=== PATIENT | female | born 1995 | race Caucasian/White ===

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

== ENCOUNTER 2017-05-04 15:21 | Emergency (ER) | payer BC ==
[2017-05-04 16:57] VITALS: BP 121/68
--- NOTE | 2017-05-04 17:26 | UC ---
Abdominal Pain Female HPI - HPI Summary HPI Summary: Started getting RLQ pain 2 days ago, has localized to R mid abd pain beside umbilicus. Poor appetite but is able to eat; no fever or n/v/d. Typically has some constipation, but having normal BMs most days including this morning. Denies surgical hx of the abdomen. 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 Pain worse with movement, jostling, deep breaths, no change with eating. - History of Current Complaint Chief Complaint: UCAbdominalPain Stated Complaint: ABDOMINAL PAIN Time Seen by Provider: 05/04/17 17:02 Hx Obtained From: Patient Hx Last Menstrual Period: 04/14/17 ?: No Onset/Duration: Gradual Onset, Lasting Days Timing: Constant Severity Initially: Mild Severity Currently: Moderate Location: Discrete At: RLQ Radiates: Yes Radiates to: Back Aggravating Factor(s): Nothing Alleviating Factor(s): Nothing Associated Signs and Symptoms: Positive: Constipation, Decreased Appetite. Negative: Fever, Cough, Blood in Stool, Vaginal Discharge, Nausea, Vomiting Allergies/Adverse Reactions: Allergies Allergy/AdvReac Type Severity Reaction Status Date / Time No Known Allergies Allergy Verified 05/04/17 16:57 Home Medications: Home Medications Ascorbic Acid TAB* [Vitamin C TAB*] 1,000 mg PO DAILY 05/04/17 [History Confirmed 05/04/17] Docusate Sodium [Stool Softener] 100 mg PO DAILY 05/04/17 [History Confirmed ] PMH/Surg Hx/FS Hx/Imm Hx Previously Healthy: Yes - Surgical History Surgical History: Yes Surgery Procedure, Year, and Place: 12/2015 RT ANKLE TORN LIGAMENT , [place]W [place] [facility] [place] 06[place] EAR TUBE [facility] - Family History Known Family History: Positive: None Family History: No cardiovascular issues in family lineage - Social History Lives: With Family Alcohol Use: None Substance Use Type: None Smoking Status (MU): Never Smoked Tobacco Have You Smoked in the Last Year: No - Immunization History Most Recent Influenza Vaccination: has not had Vaccination Up to Date: Yes Review of Systems Constitutional: Negative Skin: Negative Eyes: Negative ENT: Negative Respiratory: Negative Cardiovascular: Negative Gastrointestinal: Abdominal Pain Genitourinary: Negative Motor: Negative Neurovascular: Negative Musculoskeletal: Negative Neurological: Negative Psychological: Negative Is Patient Immunocompromised?: No All Other Systems Reviewed And Are Negative: Yes Physical Exam Triage Information Reviewed: Yes Appearance: Well-Nourished, Pain Distress - mild, wincing with movement Vital Signs: Initial Vital Signs Temp 98.8 F 05/04/17 16:46 Pulse 79 05/04/17 16:46 Resp 18 05/04/17 16:46 BP 121/68 05/04/17 16:46 Vital Signs Reviewed: Yes Eye Exam: Normal Eyes: Positive: Conjunctiva Clear ENT Exam: Normal ENT: Positive: Normal ENT inspection, Hearing grossly normal, Pharynx normal, TMs normal - PE tube in L TM Neck exam: Normal Neck: Positive: Supple, Nontender, No Lymphadenopathy Respiratory Exam: Normal Respiratory: Positive: Chest non-tender, Lungs clear, Normal breath sounds, No respiratory distress, No accessory muscle use Cardiovascular Exam: Normal Cardiovascular: Positive: RRR, No Murmur Abdomen Description: Positive: No Organomegaly, Soft, McBurney's Point Tenderness - mild, Peritoneal Signs, Other: - Focal tenderness R lateral abd, even with umbilicus Bowel Sounds: Positive: Present Musculoskeletal Exam: Normal Neurological Exam: Normal Neurological: Positive: Alert Psychological Exam: Normal Skin Exam: Normal Abd Pain Female Course/Dx - Course Course Of Treatment: Pt will be transported to [facility] by parent in private vehicle. VSS at this time. - Differential Dx/Diagnosis Provider Diagnoses: Acute abdominal pain - Physician Notification/Consults Discussed Care of Patient With: Hiram Pope MD Time Discussed With Above Provider: 17:20 Instructed by Provider To: Will See In ED Discharge - Discharge Plan Condition: Stable Disposition: HOME Patient Education Materials: Acute Abdominal Pain (ED) Referrals: Eve Novak PA [Primary Care Provider] - Additional Instructions: I am not certain what is causing your pain right now. I think you need further testing; please go to the emergency department for further evaluation.
== END 2017-05-04 17:37 | disposition home or self-care (01) ==
LOC: UCCORT 15:21
DX: R10.31 Right lower quadrant pain (principal); R10.33 Periumbilical pain; K59.00 Constipation, unspecified; Z32.02 Encounter for pregnancy test, result negative
CPT/HCPCS: 81003; 84702; 87086; 99212; G0463

== ENCOUNTER 2018-06-19 13:57 | Emergency (ER) | payer BC ==
--- OUTSIDE RECORDS SUMMARY | 2018-06-19 14:07 | XMS REPORT | Continuity of Care Document ---
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 Payers Date Identification Numbers Payment Provider Subscriber Policy Number: [id number] [facility] Sheridan Cohen PayID: [id number] [address] [place] [address] Advance Directives Description No Information Available Problems Description No Information Family History Date Family Member(s) Observation Comments Father Arrythmia Mother No Current Problems Paternal Grandfather Cancer, Renal Social History Type Date Description Comments Sex Unknown Marital Status Single Occupation Student ETOH Use Never used alcohol Tobacco Use Start: Unknown Patient has never smoked Recreational Drug Use Never Used Drugs Smoking Status Reviewed: 06/17/18 Patient has never smoked Seat Belt/Car Seat always uses seat belt Recent Travel There has not been recent travel abroad Allergies, Adverse Reactions, Alerts Description No Known Drug Allergies Medications Medication Date Status Form Strength Qnty SIG Indications Ordering Provider Zyrtec Allergy 06/17/ Active Capsules 10mg 30caps 1 by mouth Pan, 2018 every day Ashley Bhandari RN [place] [facility] Famotidine 06/17/ Active Tablets 20mg 180tab take one K21.9 Pan, 2018 s tablet by Rossy Marin RN [place] [facility] day Singulair OTC / Active Tablets 10mg 1 by mouth Unknown 0000 every day Prazosin HCL / Active Capsules 1mg Unknown 0000 Albuterol / Active Aerosol 108(90Base use three J45.998 Unknown Sulfate HFA 0000 ) mcg/Act times a day as needed Dasetta 1/35 00/ Active Tablets 1-35mg-mcg Unknown 0000 Azithromycin 03/17/ Hx Tablets 250mg 6tabs 2 tabs by J15.9 Linh, 2017 - mouth every Mary 03/20/ day MD Jacoby 2017 Control 06/05/ Hx Linh, Pill 2017 - Mary 06/17/ MD Jacoby 2018 Cephalexin 06/05/ Hx Capsules 500mg 15caps 1 tab by Linh 2016 - mouth 3x Mary 06/17/ daily x 5 MD Jacoby 2018 days Alison 00/ Hx Tablets 60mg Unknown Allergy OTC 0000 - 2018 Immunizations Description No Information Available Vital Signs Date Vital Result Comment 06/17/2018 4:43pm Body Temperature 95.6 F Heart Rate 65 /min BP Systolic 148 mmHg BP Diastolic 89 mmHg BP Systolic Recheck 128 mmHg BP Diastolic Recheck 80 mmHg Height 68 inches 5'8" O2 % BldC Oximetry 100 % 03/17/2018 12:32pm Body Temperature 97.3 F Weight 164.00 lb Heart Rate 81 /min BP Systolic 122 mmHg BP Diastolic 78 mmHg Height 68 inches 5'8" BMI (Body Mass Index) 24.9 kg/m2 06/05/2016 11:12am Body Temperature 98.2 F Weight 156.00 lb Weight Percentile 86th Heart Rate 83 /min BP Systolic 119 mmHg BP Diastolic 72 mmHg Height 68 inches 5'8" Height Percentile 93 % BMI (Body Mass Index) 23.7 kg/m2 Body Mass Index Percentile 72 % Results Test Date Facility Test Result H/L Range Note Laboratory test 03/17/2018 Done In [facility] 1 Rapid Flu NEG finding Test (In House) 1 Strep Screen (In-House) NEG Negative Wound Culture-RL 06/05/2016 [facility] SEE NOTE 1 1 SPECIMEN DESCRIPTION SURGICAL WOUND SPECIAL REQUESTS NONE GRAM STAIN NO WHITE BLOOD CELLS NO BACTERIA CULTURE RESULTS NO GROWTH REPORT STATUS FINAL 06/07/2016 Unless otherwise specified, testing performed by [facility] [address] [place] [address] Procedures Date Code Description Status 06/17/2018 90145 Airway Inhalation Treatment Completed 06/17/2018 63557 Electrocardiogram Complete Completed Encounters Type Date Location Provider Dx Diagnosis Office Visit 06/17/2018 Ashley Espinoza, 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, 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 K21.9 Gastro-esophageal reflux disease without esophagitis J45.998 Other asthma Office Visit 03/17/2018 12:50p Ez Adams PA J15.9 Unspecified bacterial pneumonia J02.9 Acute pharyngitis, unspecified J45.20 Mild intermittent asthma, uncomplicated R05 Cough R53.83 Other fatigue R05 Cough Office Visit 06/05/2016 11:00a Kamala Wall PA L03.115 Cellulitis of RIGHT lower limb Plan of Treatment 06/17/2018 - Ashley Perla, RN MS FNP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, unspecifiedNew Xrays: Chest X-Ray PA And Lateral, Ordered: 06/17/18Comments:EKG, NSR, NO ST T WAVE CHANGES, BREATHING TREATMENT W DUONEB.Probably Chest Wall Pain:Pt instructed to use an anti-inflammatory such as Ibuprofen, aleve, advil or motrin on a regular basis with food for at least 1 week. May try heat to chest wall also, a corn bag or warm moist heat is best. Sometimes ice can be used for pain in the ribs also.Miscellaneous:GET YOUR CHEST XRAY AND THEN CALL FOR ANOTHER APPOINTMENT TOMORROW TO REVIEW, TO ER FOR ANY TROUBLE BREATHING OR SHORTNESS OF QCNJBPOM46.9 Gastro-esophageal reflux disease without esophagitisNew Medication: Famotidine 20 mg - take one tablet by mouthONCE a dayJ45.998 Other asthma
--- OUTSIDE RECORDS SUMMARY | 2018-06-19 14:07 | XMS REPORT | Continuity of Care Document ---
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 Payers Date Identification Numbers Payment Provider Subscriber Policy Number: [id number] [facility] Sheridan Cohen PayID: [id number] [address] [place] [address] Advance Directives Description No Information Available Problems [...] 2018 every day Ashley Bhandari RN MS [facility] Famotidine 06/17/ Active Tablets 20mg 180tab take one K21.9 Pan, 2018 s tablet by Rossy Marin RN MS [facility] day Singulair OTC / Active Tablets 10mg 1 by mouth Unknown 0000 every day Prazosin HCL / Active Capsules 1mg Unknown 0000 Albuterol / Active Aerosol 108(90Base use three J45.998 Unknown Sulfate HFA 0000 ) mcg/Act times a day as needed Dasetta 35 / Active Tablets 1-35mg-mcg Unknown 0000 Azithromycin 03/17/ Hx Tablets 250mg 6tabs 2 tabs by J15.9 Linh, 2017 - mouth every Mary 03/20/ day MD Jacoby 2018 Control 06/05/ Hx Linh Js 2017 - Mary 06/17/ MD Jacoby 2018 Cephalexin 06/05/ Hx Capsules 500mg 15caps 1 tab by Linh 2017 - mouth 3x Mary 06/17/ daily x 5 MMD 2018 days Alison / Hx Tablets 60mg Unknown Allergy OTC 0000 [...] Unless otherwise specified, testing performed by [facility] [place] [facility] [address] [place] [address] Procedures Date Code Description Status 06/17/2018 78862 Airway Inhalation Treatment Completed 06/17/2018 98192 Electrocardiogram Complete Completed Encounters Type Date Location Provider Dx Diagnosis Office Visit 06/17/2018 Ashley Espinoza, 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, 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 K21.9 Gastro-esophageal reflux disease without esophagitis J45.998 Other asthma Office Visit 03/17/2018 12:50p Ez Adams PA J15.9 Unspecified bacterial pneumonia J02.9 Acute pharyngitis, unspecified J45.20 Mild intermittent asthma, uncomplicated R05 Cough R53.83 Other fatigue R05 Cough Office Visit 06/05/2016 11:00a Kamala Wall PA L03.115 Cellulitis of RIGHT lower limb Plan of Treatment 06/17/2018 - Ashley Perla, RN MS FNP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, unspecifiedComments: EKG, NSR, NO ST T WAVE CHANGES, BREATHING [...] FOR ANY TROUBLE BREATHING OR SHORTNESS OF GWPJYXPU00.9 Gastro-esophageal reflux disease without esophagitisNew Medication:Famotidine 20 mg - take one tablet by mouthONCE a dayJ45.998 Other asthma
--- OUTSIDE RECORDS SUMMARY | 2018-06-19 14:08 | XMS REPORT | Continuity of Care Document ---
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 Eve Novak RPAC Primary Care Physician Unavailable Payers Type Date Identification Numbers Payment Provider Subscriber Policy Number: [id number] Audie Cohen PayID: [id number] [facility] [address] [place] [address] Advance Directives Description No Information Available Problems Date Description Provider Status Onset: 03/02/2014 Temporomandibular Eve Novak RPAC Active ilzxn-qwwu-edhrdorjrls syndrome Onset: 12/25/2012 Atopic dermatitis Eve Novak RPAC Active Onset: 05/15/2012 Migraine Eve Novak RPAC Active Onset: 04/05/2015 Cough variant asthma Eve Novak RPAC Active Onset: 07/25/2015 Sensorineural hearing loss Eve Novak RPAC Active Note: L>R Onset: 08/11/2017 Raynaud's phenomenon Eve Novak RPAC Active Note: toes (Prazosin) Onset: 02/10/2018 Food allergy Eve Novak RPAC Active Note: RAST > peanut,wheat,corn,soy,coconut Onset: 02/10/2018 Gastroparesis syndrome [facility] Active Note: 02/2018 Onset: 06/02/2018 Dysmenorrhea Eve Novak RPAC Active Note: OCP 2014 Onset: 09/04/2012 Contusion of knee Vasiliy Up MD Resolved Resolved: 04/07/2015 Family History Date Family Member(s) Problem(s) Comments Mother Hearing deficit since childhood Grandfather Kidney Cancer Social History Type Date Description Comments Sex Unknown Lives With Parents Diet Patient follows no dietary restrictions Occupation Student [employer] 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 Tobacco Use Start: Unknown Never Smoked Cigarettes ETOH Use Never used alcohol Tobacco Use Start: Unknown Patient denies history of smoking Smoking Status Reviewed: 06/02/18 Patient denies history of smoking Allergies, Adverse Reactions, Alerts Date Description Reaction Status Severity Comments 01/26/2018 Coconut Nausea and Vomiting Active 02/11/2018 Wheat GI Active 02/11/2018 [place] gi Active 02/11/2018 Soybean Preparation and corn, GI Active 04/20/2018 Peanuts Active vomiting 09/04/2012 NKDA Inactive Medications Medication Date Status Form Strength Qnty SIG Indications Ordering Provider Ondansetron 04/20 Active Tablets 8mg 30tab take 1 tablet R11.10 Loya, HCL s by mouth Shay, every 8 hours M.D. as needed for nausea Amitiza 02/02 Active Capsules 24mcg 60cap take one K58.1 Loya, s capsule by Shay, mouth twice a M.D. day as needed for constipation, on hold 04/2018 Famotidine 02/02 Active Tablets 40mg 60tab take one Loya, s tablet by Shay, mouth every M.D. day to twice a day for indigestion Dicyclomine 05/15 Active Capsules 10mg 120ca take one - R10.811 Loya, HCL /2017 ps two capsules Shay, by mouth M.D. every 6 hours as needed for abdominal pain / spasm Prazosin HCL 05/15 Active Capsules 1mg 30cap 1 capsule by I73.00 Loya, s mouth every Shay, night at M.D. bedtime Dasetta 08/20 Active Tablets 1-35mg-mc 28tab 1 tab by N94.6 Loya, g s mouth every Shay, day M.D. Singulair 04/11 Active Tablets 10mg 30tab take 1 tablet Vincenzo, s once daily Marcial Day Ventolin HFA 08/23 Active Aerosol 108(90Bas 18gm 1-2 Loya, e) inhalations Shay, mcg/Act every 4 hours M.D. as needed Vitamin C Active Tablets 500mg 1 tab by Unknown /0000 mouth one a day Magnesium Active Tablets 400mg 1 by mouth Unknown /0000 every day Colace Active Capsules 100mg 2-3 caps by Unknown /0000 mouth daily Ondansetron 04/20 Hx Tablets 4mg 14tab take 1 tablet R11.10 Loya, HCL s by mouth Shay, - every 8 hours M.D. 04/20 as needed for nausea Ondansetron 01/26 Hx Tablets 4mg 14tab take 1 tablet R11.10 Loya, HCL s by mouth Shay, - every 8 hours M.D. 04/20 as needed for nausea Linzess 05/15 Hx Capsules 72mcg 30cap 1 by mouth K58.1 Loya, s every other Shay, - day for M.D. 02/02 constipation Dicyclomine 05/08 Hx Capsules 10mg 60cap take one R10.811 Loya, HCL s capsule by Shay, - mouth every 6 M.D. 05/15 hours needed for abdominal pain / spasm Amoxicillin 11/11 Hx Tablets 875mg 14tab 1 tab by I88.9 Vincenzo, s mouth twice a Shay, - day M.D. 02/17 Naproxen 09/26 Hx Tablets 375mg 60tab 1 by mouth Galina, s twice a day Juve, - with food M.D. 02/11 Ceftin 09/18 Hx Tablets 500mg 20tab 1 tab by R59.0 Ez, /2015 s mouth twice a Harley Arambula, - day (generic DO 02/11 okay) Fexofenadine 09/17 Hx Tablets 180mg 30tab take one YI Hui s tablet by Harley Arambula, - mouth every DO 01/26 day as needed /2017 for nasal congestion/al lergies Benzonatate 07/18 Hx Capsules 200mg 30cap 1 cap by R05 Ez s mouth three Harley ECezar, times a day DO as needed cough Azithromycin 07/18 Hx Tablets 250mg 10tab 2 tabs by J02.9 s mouth every Harley Arambula, - day DO 08/09 Ortho-Novum 06/05 Hx Tablets 1-35mg-mc 28tab 1 tab by N94.6 Ez, ( g s mouth every Harley Arambula, - day DO 08/20 Carbamazepine 04/21 Hx Chewtabs 100mg 14uni 1 by mouth Miguel A ts every day Marcial Goss Azithromycin 04/05 Hx Tablets 250mg 6tabs 2 tabs by R05 Ez mouth today Harley Arambula, - then one tab DO 04/10 by mouth daily Pimtrea 03/15 Hx Tablets 0.15-0.02 N94.6 Ez /0.01 mg Harley Arambula, - (22/09) DO 03/15 Tramadol HCL 03/07 Hx Tablets 50mg take 1 to 2 tablets by mouth every 6 hours if needed for ear pain Diclofenac 01/[address] 50mg 60tab 1 tab bid Rowan Mojica s with gina An M.D. Fexofenadine 01/04 Hx Tablets 180mg 30tab take one YI Hui s tablet by Harley Arambula, mouth every DO day for congestion Astelin 01/04 Hx Solution 137mcg/Sp 30ml use 2 sprays 381.81 Ez ray twice a day Harley Arambula, into each DO nostril Mircette 01/04 Hx Tablets 0.15-0.02 28tab 1 tab by N94.6 Ez /0.01 mg s mouth every Harley Arambula, - (22/09) day DO 06/05 Augmentin 12/20 Hx Tablets 875-125mg 20tab one tab by Ez s mouth every Harley Arambula, - 12 hours with DO 01/04 food /2014 Prednisone 12/20 Hx Tablets 20mg 10tab 2 tabs by Ez s mouth every Harley Arambula, - day with food DO 01/04 Azithromycin 12/14 Hx Tablets 250mg 6tabs take 2 tabs 461.9 Ez by mouth day Harley Arambula, - 1 and 1 tab DO 12/20 by mouth /2014 2-5 Ceftin 11/08 Hx Tablets 500mg 20tab 1 tab by 384.20 Ez s mouth twice a Harley Arambula, - day (generic DO 11/21 okay) Ciprodex 11/08 Hx Suspension 0.3-0.1% 7.500 4 drops to 384.20 Ez ml (L) ear bid Harley Arambula, - DO 11/25 12 Hour 03/22 Hx Tablets ER 120mg 20tab 1 by mouth Joan Decongestant 12HR s twice a day Christine - as needed MD 11/07 Dulera 12/07 Hx Aerosol 100-5mcg/ 2 inhalations Joan, Act twice a day hCristine Roy MD 11/07 Ventolin HFA 07/28 Hx Aerosol 108mcg/Ac 1unit 1-2 puffs [place] t s every 4-6 Jenniferl - hours as eigh, [employer]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 Rizatriptan 05/15 Hx Tablets 10mg 12tab one po at [facility] Dispers s onset of Christine - headache, MD rebecca 11/07 repeat in hours x 1 prn Alison 00 Hx Tablets 30tab 1 po qd Unknown /0000 s - 11/07 Ethyl Chloride 00 Hx Aerosol apply via Unknown /0000 topical route - as directed 11/[address] Napier Monteal[place] 00 Hx Tablets 10mg 30tab 1 by mouth Ez s every day Harley Arambula, - DO 04/11 Amoxicillin 00/00 Hx Chewtabs 250mg 1 by mouth Unknown /0000 three times a - day 11/08 Naproxen 00 Hx Tablets 250mg Unknown /0000 - 01/16 Aleve 00/ Hx Unknown /0000 - 09/26 Immunizations CPT Code Status Date Vaccine Reaction Lot # [id number] Given 02/17/2017 Influenza Virus Vaccine Quadrivalent Iiv4 none [id number] [address] Given 10/20/2015 Meningococcal Conjugate Vaccine [id number] Serogroups For Intramuscular Use 63073 Given 12/07/2013 Varicella (Chicken Pox) Vaccine 41265 Given 12/12/2010 Meningococcal Conjugate Vaccine Serogroups For Intramuscular Use 74318 Given 01/23/2009 Tdap injection 67786 Given 08/02/2008 Gardasil 54637 Given 02/26/2008 Gardasil 93866 Given 12/23/2007 Gardasil 65732 Given 11/25/2006 Varicella (Chicken Pox) Vaccine 64700 Given 08/05/2002 Pneumococcal Conjugate Vaccine 7 Valent For Intramuscular Use 41894 Given 08/05/2002 DTaP Vaccine Younger Than 7 09019 Given 08/05/2002 Poliovirus Vaccine Subcutaneous Or Intramuscular 26566 Given 07/18/2000 MMR Vaccine, Live, For Subcutaneous Use 11233 Given 10/23/1998 MMR Vaccine, Live, For Subcutaneous Use 36966 Given 03/08/1998 Hepatitis B Vaccine Pediatric/Adolescent 20238 Given 01/02/1998 DTaP & Hib Vaccine 69253 Given 01/02/1998 Poliovirus Vaccine Subcutaneous Or Intramuscular 99496 Given 1997 DTaP & Hib Vaccine 68183 Given 1997 Poliovirus Vaccine Subcutaneous Or Intramuscular 26796 Given 1997 Hepatitis B Vaccine Pediatric/Adolescent 56432 Given 1997 DTaP & Hib Vaccine 22962 Given 1997 Poliovirus Vaccine Subcutaneous Or Intramuscular 59817 Given 1997 Hepatitis B Vaccine Pediatric/Adolescent Vital Signs Date Vital Result Comment 06/02/2018 9:05am BP Systolic Sitting Left Arm 104 mmHg BP Diastolic Sitting Left Arm 74 mmHg Body Temperature 98.6 F Heart Rate 78 /min Respiratory Rate 16 /min Height 67.25 inches 5'7.25" Weight 152.00 lb BMI (Body Mass Index) 23.6 kg/m2 BSA (Body Surface Area) 1.80 m2 [place] body weight in kilograms 62 kg Last Menstrual Period 9467931 O2 % BldC Oximetry 100 % Ra 04/20/2018 12:00pm BP Systolic Sitting Right Arm 113 mmHg BP Diastolic Sitting Right Arm 72 mmHg Body Temperature 98.4 F Heart Rate 92 /min Respiratory Rate 12 /min Height 67.25 inches 5'7.25" Weight 155.00 lb BMI (Body Mass Index) 24.1 kg/m2 BSA (Body Surface Area) 1.82 m2 [place] body weight in kilograms 62 kg O2 % BldC Oximetry 99 % 01/26/2018 1:26pm BP Systolic 117 mmHg BP Diastolic 78 mmHg Body Temperature 97.5 F Heart Rate 82 /min Respiratory Rate 18 /min Height 67.25 inches 5'7.25" Weight 151.12 lb BMI (Body Mass Index) 23.5 kg/m2 BSA (Body Surface Area) 1.80 m2 [place] body weight in kilograms 62 kg O2 % BldC Oximetry 100 % 05/15/2017 11:06am BP Systolic Sitting Right Arm 118 mmHg BP Diastolic Sitting Right Arm 60 mmHg Heart Rate 83 /min Height 67.25 inches 5'7.25" Weight 161.00 lb BMI (Body Mass Index) 25.0 kg/m2 BSA (Body Surface Area) 1.85 m2 [place] body weight in kilograms 62 kg Height Percentile 88 % Weight Percentile 88th O2 % BldC Oximetry 98 % ra 05/08/2017 9:12am BP Systolic Sitting Left Arm 132 mmHg BP Diastolic Sitting Left Arm 82 mmHg Body Temperature 98.7 F Heart Rate 81 /min Height 67.25 inches 5'7.25" Weight 164.00 lb BMI (Body Mass Index) 25.5 kg/m2 BSA (Body Surface Area) 1.86 m2 [place] body weight in kilograms 62 kg Height Percentile 88 % Weight Percentile 89th O2 % BldC Oximetry 98 % 02/17/2017 2:14pm BP Systolic Sitting Right Arm 112 mmHg BP Diastolic Sitting Right Arm 74 mmHg Heart Rate 75 /min Respiratory Rate 18 /min Height 67.25 inches 5'7.25" Weight 166.00 lb BMI (Body Mass Index) 25.8 kg/m2 BSA (Body Surface Area) 1.87 m2 [place] body weight in kilograms 62 kg Height Percentile 88 % Weight Percentile 90th O2 % BldC Oximetry 98 % ra 11/11/2016 2:33pm BP Systolic Sitting Right Arm 124 mmHg BP Diastolic Sitting Right Arm 60 mmHg Body Temperature 98.7 F Heart Rate 74 /min Respiratory Rate 18 /min Height 68 inches 5'8" Weight 157.00 lb BMI (Body Mass Index) 23.9 kg/m2 BSA (Body Surface Area) 1.84 m2 [place] body weight in kilograms 63 kg O2 % BldC Oximetry 99 % ra 02/12/2016 1:18pm BP Systolic Sitting Right Arm 108 mmHg BP Diastolic Sitting Right Arm 62 mmHg Height 68 inches 5'8" Weight 156.25 lb BMI (Body Mass Index) 23.8 kg/m2 BSA (Body Surface Area) 1.84 m2 Height Percentile 93 % Weight Percentile 87th Last Menstrual Period [id number] 09/19/2015 2:08pm BP Systolic 102 mmHg BP Diastolic 62 mmHg Body Temperature 99.1 F Height 68 inches 5'8" Weight 145.00 lb BMI (Body Mass Index) 22.0 kg/m2 BSA (Body Surface Area) 1.78 m2 Height Percentile 93 % Weight Percentile 80th 07/19/2015 9:13am BP Systolic Sitting Left Arm 115 mmHg BP Diastolic Sitting Left Arm 71 mmHg Heart Rate 81 /min Height 68 inches 5'8" Weight 148.00 lb BMI (Body Mass Index) 22.5 kg/m2 BSA (Body Surface Area) 1.80 m2 Height Percentile 93 % Weight Percentile 83rd O2 % BldC Oximetry 98 % 04/05/2015 2:19pm BP Systolic 122 mmHg BP Diastolic 68 mmHg Body Temperature 97.7 F Height 66.5 inches 5'6.50" Weight 152.00 lb BMI (Body Mass Index) 24.2 kg/m2 BSA (Body Surface Area) 1.79 m2 Height Percentile 82 % Weight Percentile 86th 01/16/2015 2:49pm BP Systolic Sitting Left Arm 123 mmHg BP Diastolic Sitting Left Arm 68 mmHg Height 66.5 inches 5'6.50" Weight 152.00 lb BMI (Body Mass Index) 24.2 kg/m2 BSA (Body Surface Area) 1.79 m2 Height Percentile 82 % Weight Percentile 86th 01/04/2015 1:55pm BP Systolic 102 mmHg BP Diastolic 62 mmHg Height 66.5 inches 5'6.50" Weight 152.00 lb BMI (Body Mass Index) 24.2 kg/m2 BSA (Body Surface Area) 1.79 m2 Height Percentile 82 % Weight Percentile 87th Last Menstrual Period [id number] 12/13/2014 10:55am BP Systolic 102 mmHg BP Diastolic 64 mmHg Body Temperature 96.2 F Heart Rate 47 /min Height 68 inches 5'8" Weight 151.00 lb BMI (Body Mass Index) 23.0 kg/m2 BSA (Body Surface Area) 1.81 m2 Height Percentile 93 % Weight Percentile 86th O2 % BldC Oximetry 99 % 11/22/2014 2:31pm BP Systolic 105 mmHg BP Diastolic 57 mmHg Body Temperature 98.0 F Heart Rate 64 /min Weight 151.00 lb Weight Percentile 86th O2 % BldC Oximetry 98 % Ra 11/08/2014 10:38am BP Systolic 124 mmHg BP Diastolic 74 mmHg Heart Rate 74 /min Weight 151.00 lb Weight Percentile 86th 04/13/2014 11:26am BP Systolic 108 mmHg BP Diastolic 64 mmHg Body Temperature 97.9 F Weight 142.00 lb 03/22/2014 2:27pm BP Systolic 108 mmHg BP Diastolic 66 mmHg Body Temperature 98.8 F Height 66.5 inches 5'6.50" Weight 145.00 lb 12/07/2013 2:01pm BP Systolic 110 mmHg BP Diastolic 66 mmHg Height 66.5 inches 5'6.50" Weight 146.00 lb 07/28/2013 1:37pm BP Systolic 108 mmHg BP Diastolic 64 mmHg Body Temperature 98.5 F Height 67 inches 5'7" Weight 144.00 lb 06/03/2013 10:52am BP Systolic 104 mmHg BP Diastolic 62 mmHg Height 67 inches 5'7" Weight 143.00 lb 02/15/2013 11:30am BP Systolic 108 mmHg BP Diastolic 64 mmHg Body Temperature 98.4 F Height 67 inches 5'7" Weight 142.00 lb 01/26/2013 10:58am BP Systolic 108 mmHg BP Diastolic 64 mmHg Body Temperature 98.2 F Weight 144.00 lb 01/01/2013 9:23am BP Systolic 112 mmHg BP Diastolic 60 mmHg Height 65 inches 5'5" Weight 143.00 lb 12/29/2012 9:07am BP Systolic 102 mmHg BP Diastolic 64 mmHg Height 65 inches 5'5" Weight 139.00 lb 12/22/2012 1:27pm BP Systolic 108 mmHg BP Diastolic 58 mmHg Height 65 inches 5'5" Weight 141.00 lb 09/04/2012 10:27am BP Systolic Sitting Left Arm 100 mmHg BP Diastolic Sitting Left Arm 68 mmHg Height 66 inches 5'6" Weight 133.00 lb BMI (Body Mass Index) 21.5 kg/m2 BSA (Body Surface Area) 1.68 m2 Height Percentile 80 % Weight Percentile 76th 07/29/2012 4:32pm BP Systolic 104 mmHg BP Diastolic 66 mmHg Body Temperature 99.9 F Height 64.5 inches 5'4.50" Weight 130.00 lb 05/15/2012 2:20pm BP Systolic 102 mmHg BP Diastolic 66 mmHg Height 64.5 inches 5'4.50" Weight 122.00 lb 12/18/2011 10:29am BP Systolic 100 mmHg BP Diastolic 62 mmHg Height 64.5 inches 5'4.50" Weight 134.00 lb 10/03/2011 3:29pm BP Systolic 102 mmHg BP Diastolic 60 mmHg Weight 130.00 lb 05/07/2011 1:08pm BP Systolic 118 mmHg BP Diastolic 68 mmHg Body Temperature 99.9 F Height 64 inches 5'4" Weight 131.00 lb Results Test Date Facility Test Result H/L Range Note Urine Dipstick 06/02/2018 [facility] Ua Color yellow Yellow Ua Clarity clear Clear Ua Leuko negative Negative Ua Nitrite negative Negative Ua Urobilinogen 0.2 0.2 - 1.0 E.U./dL Ua Protein negative Negative Ua PH 7.5 6.5-7.5 Ua Blood negative Negative Ua Specific [place] 1.010 1.010-1.030 Ua Ketones negative Negative Ua Bilirubin negative Negative Ua Glucose negative Negative Laboratory test 01/26/2018 [facility] Coconut F036 0.42 kU/L Class I 1, 2 finding [address] [place] [address] [phone] Gliadin Igg/Iga 01/26/2018 [facility] Antigliadin Abs, 1 units 0-[address] [place] [address] [phone] Antigliadin Abs, IgA 3 units 0-19 4 H Pylori,Igm,Igg,Iga 01/26/2018 [facility] Helicobacter 0.45 0.00-0.79 [address] Pylori, Igg u/[place] [address] [phone] Helicobacter Pylori, Iga Abs < 9.0 units 0.0-8.9 6 Helicobacter Pylori, Igm Abs < 9.0 units 0.0-8.9 7 Allergen Profile,Basic 01/26/2018 [facility] mRast Class (SEE NOTE) [address] (Text Only) [place] [address] [phone] Beef <0.10 kU/L Class 0 Chocolate/[place] F052 <0.10 kU/L Class 0 [place] 0.61 kU/L Class II Egg (Whole) <0.10 kU/L Class 0 Fish/Shell Mix Negative k/UL . 9 Milk (Cow) <0.10 kU/L Class 0 Peanut 0.69 kU/L Class II Soybean 0.52 kU/L Class I Wheat 0.66 kU/L Class II Pork <0.10 kU/L Class 0 Comprehensive Metabolic 01/26/2018 [facility] Glucose 78 mg/dL N 74-[address] [place] [address] [phone] BUN 11 mg/dL N 7-18 Creatinine 0.6 mg/dL N 0.6-1.3 Glom Filtration Rate, Estimate >60 mL/min >60 If >60 mL/min >60 10 BUN/Creat 18.3 ratio Sodium 140 mmol/L N 136-145 Potassium 3.8 mmol/L N 3.5-5.1 Chloride 103 mmol/L N 98-107 Carbon Dioxide 28 mmol/L N 21-32 Anion Gap 9 mEq/L N 8-16 Calcium 8.7 mg/dL N 8.5-10.1 Total Protein 8.1 g/dL N 6.4-8.2 Albumin 3.6 g/dL N 3.4-5.0 Globulin 4.5 g/dL High 1.9-4.3 Alb/Glob 0.8 ratio Bilirubin,Total 0.3 mg/dL N 0.2-1.0 Sgot/Ast 18 U/L N 15-37 SGPT/Alt 17 U/L N 12-78 Alkaline Phosphatase 73 U/L N 45-117 Laboratory 05/20/2017 [facility] Sedimentation 1 mm/hr N 0-20 11, 12 test finding [address] [place] [address] [phone] Laboratory 05/15/2017 [facility] C-Reactive 3.7 mg/L High <3.0 13 test finding [address] Protein,[place] [address] [phone] Uric Acid 3.1 mg/dL N 2.6-6.0 Calcium 9.4 mg/dL N 8.5-10.1 Total Protein 7.6 g/dL N 6.4-8.2 Albumin 3.8 g/dL N 3.4-5.0 Alb/Glob 1.0 ratio Alkaline Phosphatase 63 U/L N 45-117 Rheumatoid Factor Screen < 10.0 IU/mL N 0.0-15.0 Globulin 3.8 g/dL N 1.9-4.3 Antinuclear Antibodies, Ifa Negative . 14 Sedimentation Rate TNP mm/hr 0-20 15 Potassium 05/04/2017 N2N/[facility]D Import Potassium 3.5 3.5-5.1 SerPl-sCnc SerPl-sCnc Prot Ur 05/04/2017 N2N/CCD Import Prot Ur Negative Negative Strip.auto-mCnc Strip.auto-mCnc RDW RBC Auto 05/04/2017 N2N/CCD Import RDW RBC Auto 39.1 3-47 RDW RBC Auto-Rto 05/04/2017 N2N/CCD Import RDW RBC Auto-Rto 12.5 11.7- 14.4 Serum carbon 05/04/2017 N2N/CCD Import Serum carbon 27 21-32 dioxide dioxide measurement measurement Serum or plasma 05/04/2017 N2N/CCD Import Serum or plasma 3.5 3.4-5.0 albumin albumin measurement measurement (mass/volume) (mass/volume) Serum or plasma 05/04/2017 N2N/CCD Import Serum or plasma 59 45-117 alkaline alkaline phosphatase phosphatase measurement ( measurement (enzymatic activity/volume) Serum or plasma 05/04/2017 N2N/CCD Import Serum or plasma 17 15-37 aspartate aspartate aminotransferase aminotransferase measure measurement (enzymatic activity/volume) Serum or plasma 05/04/2017 N2N/CCD Import Serum or plasma 8.5 8.5-10.1 calcium calcium measurement measurement (mass/volume) (mass/volume) Serum or plasma 05/04/2017 N2N/CCD Import Serum or plasma 0.6 0.6-1.3 creatinine creatinine measurement measurement (mass/volum (mass/volume) Serum or plasma 05/04/2017 N2N/CCD Import Serum or plasma 75 74-106 glucose glucose measurement measurement (mass/volume) (mass/volume) Serum or plasma 05/04/2017 N2N/CCD Import Serum or plasma 135 56-289 lipase measurement lipase measurement (enzymatic acti (enzymatic activity/volume) Serum or plasma 05/04/2017 N2N/CCD Import Serum or plasma 7.6 6.4-8.2 protein protein measurement measurement (mass/volume) (mass/volume) Serum or plasma 05/04/2017 N2N/CCD Import Serum or plasma 0.2 0.2-1.0 total bilirubin total bilirubin measurement (mass/ measurement (mass/volume) Serum or plasma 05/04/2017 N2N/CCD Import Serum or plasma 9 7-18 urea nitrogen urea nitrogen measurement measurement (mass/vo (mass/volume) Serum sodium 05/04/2017 N2N/CCD Import Serum sodium 141 136-145 measurement measurement Specific gravity 05/04/2017 N2N/CCD Import Specific gravity 1.010 1.010- 1.0 of Urine by of Urine by 30 Automated test Automated test strip strip Urine appearance 05/04/2017 N2N/[facility]D Import Urine appearance Clear Clear determination determination Urine glucose 05/04/2017 N2N/CCD Import Urine glucose Negative Negative measurement by measurement by automated test automated test strip strip (mass/volume) Urine hemoglobin 05/04/2017 N2N/CCD Import Urine hemoglobin Negative Negative detection by detection by automated test automated test strip strip Urine total 05/04/2017 N2N/CCD Import Urine total Negative Negative bilirubin bilirubin detection by detection by automated test automated test strip Urobilinogen Ur 05/04/2017 N2N/CCD Import Urobilinogen Ur 0.2 0.2-1.0 Strip-aCnc Strip-aCnc WBC # Bld Auto 05/04/2017 N2N/CCD Import WBC # Bld Auto 5.8 3.1-10.7 pH Ur Strip.auto 05/04/2017 N2N/CCD Import pH Ur Strip.auto 6.0 Low 6.5- 7.5 Laboratory test 05/04/2017 [facility] Laboratory Urine Culture SEE RESULT 16, finding [phone] BELOW 17 Laboratory test 05/04/2017 [facility] Laboratory Poc , Negative Negative 18 finding [phone] Urine Poc Urinalysis 05/04/2017 [facility] Poc Glucose, Urine Negative Negative [phone] Poc Bilirubin, Urine Negative Negative Poc Ketone, Urine Negative Negative Poc Specific [place], Urine 1.015 N 1.010-1.030 Poc Blood, Urine Negative Negative Poc pH, Urine 7.0 N 5-9 Poc Protein, Urine Negative Negative Poc Urobilinogen, Urine 0.2 Negative Poc Nitrite, Urine Negative Negative Poc Leukocytes, Urine Trace Abnormal Negative Poc Color, Urine Yellow Poc Clarity, Urine Clear 19 CBS W/Automated 05/04/2017 [facility] White Blood 5.8 K/uL N 3.1-10.7 [address] [place] [address] [phone] Red Blood Count 4.94 M/uL N 3.90-5.40 Hemoglobin 14.9 gm/dL N 11.6-15.8 Hematocrit 43.0 % N 36.0-46.1 Mean Cell Volume 87.0 fl N 80.9-99.0 Mean Corpuscular HGB 30.2 pg N 25.9-32.7 Mean Corpuscular HGB Conc 34.7 g/dL High 30.8-34.3 Platelet Count 328 K/uL N 155-360 Red Cell Distri Width SD 39.1 fl N 3-47 Red Cell Distri Width %CV 12.5 % N 11.7-14.4 Mean Platelet Volume 10.2 fL N 8.9-12.4 Neut% 54.0 % N 28.0-68.0 Lymph % 35.2 % N 20.0-42.0 Sharp % 7.6 % N 4.3-13.2 Eo% 2.9 % N 0.0-6.6 Bas% 0.3 % N 0.0-1.1 Neut# 3.14 K/uL N 1.8-7.0 Lymph # 2.05 K/uL N 1.0-4.0 Sharp # 0.44 K/uL N 0.3-0.9 Eos # 0.17 K/uL N 0.0-0.5 Baso # 0.02 K/uL N 0.0-0.1 Xray 05/04/2017 [facility] - Radiology CT, Abdomen & <pending> [address] [place] [address] [phone] Ua RFX Micro & 05/04/2017 [facility] Urine Color YELLOW Yellow Culture II [address] [place] [address] [phone] Urine Clarity CLEAR Clear Urine Glucose - Dipstick NEGATIVE mg/dL Negative Urine Bilirubin - Dipstick NEGATIVE Negative Urine Ketone NEGATIVE mg/dL Negative Urine Specific [place] 1.010 N 1.010-1.030 Urine Blood NEGATIVE Negative Urine PH 6.0 Low 6.5-7.5 Urine Protein - Dipstick NEGATIVE mg/dL Negative Urine Urobilinogen - Dipstick 0.2 E.U./dL N 0.2-1.0 Urine Nitrite - Dipstick NEGATIVE Negative Urine Leuk Esterase NEGATIVE Negative Source: URINE, CLEAN CAT <SEE NOTE> 21 Comprehensive Metabolic 05/04/2017 [facility] Glucose 75 mg/dL N 74-106 Panel [address] [place] [address] [phone] BUN 9 mg/dL N 7-18 Creatinine 0.6 mg/dL N 0.6-1.3 Glom Filtration Rate, Estimate >60 mL/min >60 If >60 mL/min >60 22 BUN/Creat 15.0 ratio Sodium 141 mmol/L N 136-145 Potassium 3.5 mmol/L N 3.5-5.1 Chloride 108 mmol/L High 98-107 Carbon Dioxide 27 mmol/L N 21-32 Anion Gap 6 mEq/L Low 8-16 Calcium 8.5 mg/dL N 8.5-10.1 Total Protein 7.6 g/dL N 6.4-8.2 Albumin 3.5 g/dL N 3.4-5.0 Globulin 4.1 g/dL N 1.9-4.3 Alb/Glob 0.9 ratio Bilirubin,Total 0.2 mg/dL N 0.2-1.0 Sgot/Ast 17 U/L N 15-37 SGPT/Alt 17 U/L N 12-78 Alkaline Phosphatase 59 U/L N 45-117 Laboratory test finding 05/04/2017 [facility] Lipase 135 U/L N 56-289 [address] [place] [address] [phone] HCG,Serum (Qualitative) NEGATIVE (Negative) 23 Alt SerPl-cCnc 05/04/2017 N2N/CCD Import Alt SerPl-cCnc 17 12-78 Albumin/Glob 05/04/2017 N2N/CCD Import Albumin/Glob 0.9 SerPl SerPl Anion Gap 05/04/2017 N2N/CCD Import Anion Gap 6 Low 8-16 SerPl-sCnc SerPl-sCnc Automated blood 05/04/2017 N2N/CCD Import Automated blood 0.02 0.0-0.1 basophil count basophil count (count/volume) (count/volume) Automated blood 05/04/2017 N2N/CCD Import Automated blood 0.17 0.0-0.5 eosinophil count eosinophil count Automated blood 05/04/2017 N2N/CCD Import Automated blood 43.0 36.0- 46.1 hematocrit hematocrit (volume fraction) (volume fraction) Automated blood 05/04/2017 N2N/CCD Import Automated blood 2.05 1.0-4.0 lymphocyte count lymphocyte count (number/volume) (number/volume) Automated blood 05/04/2017 N2N/CCD Import Automated blood 328 155-360 platelet count platelet count Automated blood 05/04/2017 N2N/CCD Import Automated blood 10.2 8.9-12.4 platelet mean platelet mean volume volume measurement measurement Automated 05/04/2017 N2N/CCD Import Automated 30.2 25.9-32.7 erythrocyte mean erythrocyte mean corpuscular corpuscular hemoglobin hemoglobin (mass per erythrocyte) Automated 05/04/2017 N2N/CCD Import Automated 34.7 High 30.8-34.3 erythrocyte mean erythrocyte mean corpuscular corpuscular hemoglobin hemoglobin concentration measurement (mass/volume) Automated 05/04/2017 N2N/CCD Import Automated 87.0 80.9-99.0 erythrocyte mean erythrocyte mean corpuscular corpuscular volume volume Nitrite Ur Ql 05/04/2017 N2N/CCD Import Nitrite Ur Ql Negative Negative Strip.auto Strip.auto Neutrophils/leuk 05/04/2017 N2N/CCD Import Neutrophils/leuk 54.0 28.0- 68.0 NFr Bld Auto NFr Bld Auto Neutrophils # Bld 05/04/2017 N2N/CCD Import Neutrophils # 3.14 1.8-7.0 Auto Bld Auto Monocytes/leuk 05/04/2017 N2N/CCD Import Monocytes/leuk 7.6 4.3-13.2 NFr Bld Auto NFr Bld Auto Lymphocytes/leuk 05/04/2017 N2N/CCD Import Lymphocytes/leuk 35.2 20.0- 42.0 NFr Bld Auto NFr Bld Auto Leukocyte 05/04/2017 N2N/CCD Import Leukocyte Negative Negative esterase Ur Ql esterase Ur Ql Strip.auto Strip.auto Ketones Ur 05/04/2017 N2N/CCD Import Ketones Ur Negative Negative Strip.auto-mCnc Strip.auto-mCnc Globulin Ser 05/04/2017 N2N/CCD Import Globulin Ser 4.1 1.9-4.3 Calc-mCnc Calc-mCnc BUN/Creat SerPl 05/04/2017 N2N/CCD Import BUN/Creat SerPl 15.0 Basophils/leuk 05/04/2017 N2N/CCD Import Basophils/leuk 0.3 0.0-1.1 NFr Bld Auto NFr Bld Auto Blood 05/04/2017 N2N/CCD Import Blood 4.94 3.90-5.40 erythrocytes erythrocytes automated count automated count (number/volume) (number/volume) Blood hemoglobin 05/04/2017 N2N/CCD Import Blood hemoglobin 14.9 11.6- 15.8 measurement measurement (mass/volume) (mass/volume) Eosinophil/leuk 05/04/2017 N2N/CCD Import Eosinophil/leuk 2.9 0.0-6.6 NFr Bld Auto NFr Bld Auto Color Ur 05/04/2017 N2N/CCD Import Color Ur Yellow Yellow Chloride 05/04/2017 N2N/CCD Import Chloride 108 High 98-107 SerPl-sCnc SerPl-sCnc Blood monocytes 05/04/2017 N2N/CCD Import Blood monocytes 0.44 0.3-0.9 automated count automated count (number/volume) (number/volume) Roberto Roberts 06/23/2016 [facility] Ebv Capsid Ag Negative N Negative 24 Comprehensive [phone] IgG Ab Ebv Capsid Ag IgM Ab Negative N Negative Roberto-Roberts Nuclear Antigen Negative N Negative Roberto-Roberts Virus Interp See Comment N 25 Laboratory test 06/23/2016 [facility] Monospot Negative N Negative 26 finding [phone] CBC Auto Diff 06/23/2016 [facility] White Blood 11.8 10^3/uL High 3.5-10.8 [phone] Count Red Blood Count 4.66 10^6/uL N 4.0-5.4 Hemoglobin 13.7 g/dL N 12.0-16.0 Hematocrit 40 % N 35-47 Mean Corpuscular Volume 87 fL N 80-97 Mean Corpuscular Hemoglobin 29 pg N 27-31 Mean Corpuscular HGB Conc 34 g/dL N 31-36 Red Cell Distribution Width 14 % N 10.5-15 Platelet Count 253 10^3/uL N 150-450 Mean Platelet Volume 9 um3 N 7.4-10.4 Abs Neutrophils 10.2 10^3/uL High 1.5-7.7 Abs Lymphocytes 0.9 10^3/uL Low 1.0-4.8 Abs Monocytes 0.6 10^3/uL N 0-0.8 Abs Eosinophils 0 10^3/uL N 0-0.6 Abs Basophils 0.1 10^3/uL N 0-0.2 Abs Nucleated RBC 0.03 10^3/uL N Granulocyte % 86.7 % High 38-83 Lymphocyte % 7.6 % Low 25-47 Monocyte % 5.1 % N 1-9 Eosinophil % 0 % N 0-6 Basophil % 0.6 % N 0-2 Nucleated Red Blood Cells % 0.3 N Laboratory test 05/06/2016 [facility] Negative N Negative 27 finding [phone] (HCG) Urine Laboratory test 12/11/2015 [facility] Negative N Negative 28 finding [phone] (HCG) Urine Laboratory test 07/19/2015 [facility] Throat Strep See Note [address] [place] [address] [phone] Laboratory test 04/13/2014 N2N/CCD Import Throat Strep See Note 30 finding Screen 1 K58.1, R11.10 K58.1 2 Performed at: - [facility] [address] [id number] Textile Supervisor: Murray Espinosa MD, Phone: [phone] Performed at: RN - [facility] [address] [id number] Textile Supervisor: Farnaz Callahan MD, Phone: [phone] 3 Negative 0 - 19 Weak Positive 20 - 30 Moderate to Strong Positive >30 4 Negative 0 - 19 Weak Positive 20 - 30 Moderate to Strong Positive >30 5 INFCE Result Units: Index Value Negative <0.80 Equivocal 0.80 - 0.89 Positive >0.89 6 Negative <9.0 Equivocal 9.0 - 11.0 Positive >11.0 7 Negative <9.0 Equivocal 9.0 - 11.0 Positive >11.0 This test was developed and its performance characteristics determined by [facility]. It has not been cleared or approved by the Food and Drug Administration. 8 Levels of Specific IgE Class Description of Class ----- < 0.10 0 Negative 0.10 - 0.31 0/I Equivocal/Low 0.32 - 0.55 I Low 0.56 - 1.40 II Moderate 1.41 - 3.90 III High 3.91 - 19.00 IV Very High 19.01 - 100.00 V Very High >100.00 Very High 9 Allergens in this mix are: Blue mussel Fish [place] Shrimp Tuna 10 Note: Persistent reduction for 3 months or more in an eGFR <60 mL/min/1.73 m2 defines CKD. Patients with eGFR values >/=60 mL/min/1.73 m2 may also have CKD if evidence of persistent proteinuria is present. The original MDRD equation for estimated GFR is not valid for patients less than 18 years of age. Additional information may be found at www.kdoqi.org. 11 I73.00 REDRAW FROM 389291- ICD I73.00 12 Method: Sediplast Modified Westergren 13 I73.00 14 Negative <1:80 Borderline 1:80 Positive >1:80 Performed at: RN - [facility] [address] [id number] Textile Supervisor: Farnaz Callahan MD, Phone: [phone] 15 No lavender top tube sent. 16 [id number] 17 SEE RESULT BELOW Name: ABDIFATAH COHEN : [address]: Isaías Carrasco MD Acct: [id number] Unit: [id number] AGE: 21 Location: [facility] Re05/04/17 SEX: F Status: DEP ER SPEC: [id number] WHITNEY: 05/04/17-[address] [facility] [address]: Isaías Carrasco MD REQ: [id number] RECD: 05/05/17-1350 STATUS: MIKE GARCIA DR: Eve Novak PA _ SOURCE: URINE SPDESC: ORDERED: Urine Culture COMMENTS: [id number] Procedure Result Reported Site Urine Culture Final 05/06/17- 1228 ML No growth of clinically significant organisms * ML - MAIN LAB (PSC1) . END OF REPORT * ML=Testing performed at Main Lab DEPARTMENT OF PATHOLOGY, [address] [place] [address] Jez Clarke M.D. Director [facility] # [id number] 18 Weapons Designer: [id number] If is still suspected, please repeat test after 48 to 72 hours. 19 Weapons Designer: [id number] 20 SENT FROM [facility], ABD PAIN 21 URINE, CLEAN CATCH 22 Note: Persistent reduction for 3 months or more in an eGFR <60 mL/min/1.73 m2 defines CKD. Patients with eGFR values >/=60 mL/min/1.73 m2 may also have CKD if evidence of persistent proteinuria is present. The original MDRD equation for estimated GFR is not valid for patients less than 18 years of age. Additional information may be found at www.kdoqi.org. 23 SERUIM SPECIMEN Method: Quidel QuickVue One-Step Immunoassay 24 [id number] 25 Results suggest no prior exposure to Roberto-Roberts Virus. However, a second serum specimen should be tested in 10-14 days if clinically indicated. ADDITIONAL INFORMATION In most populations, at least 90% of the adult population will have been infected with EBV sometime in the past and therefore, will be positive for anti-VCA/IgG and anti- EBNA. Antibodies to EBNA develop 6-8 weeks after primary infection and remain present for life. Presence of VCA/ IgM antibodies indicates recent primary infection with EBV. Test Performed by: [address] [id number] Unemployment Claims Adjudicator: Murray Morton II, M.D., Ph.D. 26 [id number] Would you like an EBV if Monospot is Negative?: Y 27 If is still suspected, please repeat test after 48 to 72 hours. This test detects intact HCG only and is indicated for the early detection of . 28 If is still suspected, please repeat test after 48 to 72 hours. This test detects intact HCG only and is indicated for the early detection of . 29 NO BETA STREPTOCOCCI ISOLATED 30 NO BETA STREPTOCOCCI ISOLATED Procedures Date Code Description Status 09/13/2015 44861 Radiology, Foot, Complete-3 Views Completed 09/13/2015 49122 Radiology, Foot, Complete-3 Views Completed 02/13/2015 38639 Radiology, Foot, Complete-3 Views Completed 02/13/2015 15008 Radiology, Foot, Complete-3 Views Completed 01/04/2015 19481 Visual Screening Test Of Visual Acuity, Quantitative, Completed Bilateral 09/04/2012 20987 Radiology, Knee 3 Views Completed Encounters Type Date Location Provider Dx Diagnosis Office Visit 04/20/2018 [facility], Z91.018 Allergy to other 11:00a Office Eve, [facility] foods Office Visit 01/26/2018 [facility], K58.1 Irritable bowel 1:30p Office Eve, [facility] syndrome with constipation R11.10 Vomiting, unspecified Office Visit 05/15/2017 11:00a [facility], K58.1 Irritable bowel Office Eve, [facility] syndrome with constipation I73.00 Raynaud's syndrome without gangrene Office Visit 05/08/2017 9:00a [facility], R10.811 Right upper Office Eve, [facility] quadrant abdominal tenderness I73.00 Raynaud's syndrome without gangrene Office Visit 02/17/2017 2:15p [facility], Z00.00 Encntr for Office Eve, [facility] general adult medical exam w/o abnormal findings K59.00 Constipation, unspecified Z23 Encounter for immunization Office Visit 11/11/2016 [facility], I88.9 Nonspecific 2:30p Office Eve, [facility] lymphadenitis, unspecified Office Visit 02/12/2016 [facility] Z00.00 Encntr for general 1:00p Office Eve, [facility] adult medical exam w/o abnormal findings Office Visit 09/27/2015 Orthopaedic Florentin, S93.611A Sprain of tarsal 3:15p Office Erin Bryan, ligament of right [facility] foot, initial encounter M79.671 Pain in right foot Office Visit 09/19/2015 [facility], R59.0 Localized 1:45p Office Eve, [facility] enlarged lymph nodes Office Visit 09/13/2015 Orthopaedic Erin Lerma S93.611A Sprain of 2:30p Office S., [facility] tarsal ligament of right foot, initial encounter M79.671 Pain in right foot Office Visit 07/19/2015 9:15a [facility], J02.9 Acute pharyngitis, Office Eve, [facility] unspecified R05 Cough Office Visit 04/05/2015 [facility] R05 Cough 2:15p Office Eve, [facility] Office Visit 03/15/2015 Orthopaedic Erin Lerma Z47.89 Encounter for 9:15a Office S., [facility] other orthopedic aftercare Office Visit 02/13/2015 Erin Perdomo S93.611A Sprain of tarsal 10:30a Office S., [facility] ligament of right foot, initial encounter M79.671 Pain in right foot Office Visit 01/16/2015 2:45p Orthopaedic Office Erin Lerma M79.671 Pain in S., [facility] right foot S93.611A Sprain of tarsal ligament of right foot, initial encounter Office Visit 01/04/2015 1:45p [facility] V20.2 Routine Infant Office Eve [facility] Or Child Health Check 381.81 Eustachian Tube Dysfunction 625.3 Dysmenorrhea Office Visit 12/13/2014 10:40a [facility] Hui 388.8 Ear Disorders Office E., DO Other Office Visit 11/22/2014 2:30p [facility], 384.20 Tympanic Membrane Office Eve, Perforation [facility] Unspec Office Visit 11/08/2014 10:30a [facility], 384.20 Tympanic Membrane Office Eve, Perforation [facility] Unspec Office Visit 09/04/2012 10:20a Orthopaedic Office Jeovanny 924.11 Contusion Knee Vasiliy Rasheed MD E007.6 Activities Involving Basketball Plan of Treatment 06/02/2018 - Eve Novak RPACZ00.00 Encounter for general adult medical examination without abnoZ91.018 Allergy to other foodsComments:Multiple food allergies noted on RAST testingFollowing restricted diet.Discussed options for furtherevaluation.K58.1 Irritable bowel syndrome with constipationComments: Current treatment: Linzess 72mg once week, Dicyclomine 10mg 1-2 capsules every 6 hrs as needed, pre/probiotic pqjwsT32.00 Raynaud's syndrome without gangreneComments:(R) middle toes. Has coldness in multiple fingers, color change single episode Current treatment Prazosin 1mg daily May try twice a day fgawhlV19.9 Dermatitis, unspecifiedComments:NeckRecommended: Hydrocortisone OTC topical
[2018-06-19 14:49] VITALS: BP 129/51
--- NOTE | 2018-06-19 15:21 | UC ---
Respiratory Complaint HPI - HPI Summary HPI Summary: The patient is a 22-year-old female with a less than 48 hour history of nasal congestion cough headache and myalgias. Earlier in the week she had some chest pain while playing lacrosse. She was seen by her [facility] and had a normal EKG as well as a normal chest x-ray. She states her chest pain has markedly decreased. He has had some nausea and vomiting. She has a history of exercise-induced asthma.Yesterday she need to use her inhaler. - History of Current Complaint Chief Complaint: UCGeneralIllness Stated Complaint: FEVER,NAUSEA,COUGH,CONGESTION Time Seen by Provider: 06/19/18 15:05 Hx Obtained From: Patient Hx Last Menstrual Period: 04/14/17 Onset/Duration: Sudden Onset, Lasting Hours Timing: Constant Severity Initially: Mild Severity Currently: Moderate Pain Intensity: 4 Pain Scale Used: 0-10 Numeric Character: Cough: Nonproductive Aggravating Factors: Nothing Alleviating Factors: Nothing Associated Signs And Symptoms: Positive: Fever, Chills, Nasal Congestion, Sinus Discomfort - Allergies/Home Medications Allergies/Adverse Reactions: Allergies Allergy/AdvReac Type Severity Reaction Status Date / Time No Known Allergies Allergy Verified 06/19/18 14:49 Home Medications: Home Medications Cetirizine* [ZyrTEC 10 MG TAB*] 10 mg PO DAILY 06/19/18 [History Confirmed 06/19] PMH/Surg Hx/FS Hx/Imm Hx Previously Healthy: Yes Respiratory History: Asthma - Surgical History Surgical History: Yes Surgery Procedure, Year, and Place: 12/2015 RT ANKLE TORN LIGAMENT , SCREW INSERTION [facility]. 06/2015 LEFT EAR TUBE [facility] - Family History Known Family History: Positive: Hypertension Family History: No cardiovascular issues in family lineage - Social History Alcohol Use: None Substance Use Type: None Smoking Status (MU): Never Smoked Tobacco Have You Smoked in the Last Year: No - Immunization History Most Recent Influenza Vaccination: has not had Vaccination Up to Date: Yes Review of Systems All Other Systems Reviewed And Are Negative: Yes Constitutional: Positive: Fever, Chills, Fatigue Skin: Positive: Negative Eyes: Positive: Negative ENT: Positive: Nasal Discharge, Sinus Congestion, Sinus Pain/Tenderness Respiratory: Positive: Cough Cardiovascular: Positive: Negative Gastrointestinal: Positive: Negative Genitourinary: Positive: Negative Motor: Positive: Negative Neurovascular: Positive: Negative Musculoskeletal: Positive: Myalgia Neurological: Positive: Headache Psychological: Positive: Negative Physical Exam Triage Information Reviewed: Yes Appearance: Well-Appearing, No Pain Distress, Well-Nourished Vital Signs: Initial Vital Signs Temp 99.7 F 06/19/18 14:39 Pulse 65 06/19/18 14:39 Resp 16 06/19/18 14:39 BP 129/51 06/19/18 14:39 Pulse Ox 100 06/19/18 14:39 Vital Signs Reviewed: Yes Eyes: Positive: Conjunctiva Clear ENT: Positive: Hearing grossly normal, Nasal congestion, Nasal drainage, Sinus tenderness. Negative: Tonsillar swelling, Tonsillar exudate, Trismus, Muffled voice, Hoarse voice Neck: Positive: Supple, Nontender, No Lymphadenopathy Respiratory: Positive: No respiratory distress, No accessory muscle use, Wheezing - wioth forced expiration Cardiovascular: Positive: RRR, No Murmur Musculoskeletal: Positive: ROM Intact, No Edema Neurological: Positive: Alert Psychological Exam: Normal Skin Exam: Normal UC Diagnostic Evaluation - Laboratory O2 Sat by Pulse Oximetry: 100 - normal/not hypoxic Diagnostic Studies Comment: influenza (-) Respiratory Course/Dx - Differential Dx/Diagnosis Provider Diagnosis: Influenza-like illness, Bronchospasm Discharge - Sign-Out/Discharge Documenting (check all that apply): Patient Departure All imaging exams completed and their final reports reviewed: No Studies - Discharge Plan Condition: Stable Disposition: HOME Prescriptions: Oseltamivir CAP* [Tamiflu CAP*] 75 mg PO BID #10 cap predniSONE [Deltasone 20 MG TAB] 40 mg PO DAILY #10 tab Patient Education Materials: Influenza (ED) Forms: *Gen. Provider Communication Referrals: Eve Novak PA [Primary Care Provider] - 3 Days (if not better) Additional Instructions: recheck for new or worsening symptoms - Billing Disposition and Condition Condition: STABLE Disposition: Home
[2018-06-19 15:33] LABS: Influenza A Molecular NEGATIVE (Negative); Influenza B Molecular NEGATIVE (Negative)
== END 2018-06-19 15:54 | disposition home or self-care (01) ==
LOC: UCCORT 13:57
DX: J11.1 Influenza due to unidentified influenza virus with other respiratory manifestations (principal); J45.909 Unspecified asthma, uncomplicated; R11.2 Nausea with vomiting, unspecified
CPT/HCPCS: 99212; G0463